=== PATIENT | female | born 1980 | race Caucasian/White ===

== ENCOUNTER 2016-10-26 15:24 | Emergency (ER) | payer OTHER ==
[2016-10-26 15:36] VITALS: BP 101/60
--- NOTE | 2016-10-26 15:58 | UC ---
Throat Pain/Nasal Hardeep HPI - HPI Summary HPI Summary: Started having fever 7 days ago with body aches, cough, nasal congestion, and CASIANO. Fevers resolved after 3-4 days, nasal congestion is improved, and cough is only occasional. Starting yesterday developed new fever with body aches, severe ST, and difficulty swallowing. Has school-aged kids at home. - History of Current Complaint Chief Complaint: UCRespiratory Stated Complaint: SORE THROAT CASIANO ACHES Time Seen by Provider: 10/26/16 15:36 Hx Obtained From: Patient Hx Last Menstrual Period: STARTED 32-4 DAYS AGO ?: No Onset/Duration: Gradual Onset Severity: Moderate Cough: Nonproductive Associated Signs & Symptoms: Positive: Nasal Discharge, Fever - Allergies/Home Medications Allergies/Adverse Reactions: Allergies Allergy/AdvReac Type Severity Reaction Status Date / Time No Known Allergies Allergy Verified 12/06/15 20:39 PMH/Surg Hx/FS Hx/Imm Hx Endocrine History Of: Denies: Diabetes, Thyroid Disease Cardiovascular History Of: Denies: Cardiac Disorders, Hypertension, Pacemaker/ICD, Congestive Heart Failure Respiratory History Of: Denies: COPD, Asthma GI/ History Of: Denies: Ulcer, Renal Disease - Surgical History Surgical History: Yes Surgery Procedure, Year, and Place: x2, l ureter transplant - Family History Known Family History: Positive: Hypertension - Social History Lives: With Family Alcohol Use: Rare Substance Use Type: None Smoking Status (MU): Never Smoked Tobacco Review of Systems Constitutional: Fever, Chills, Fatigue Skin: Negative Eyes: Negative ENT: Sore Throat, Nasal Discharge Respiratory: Cough Cardiovascular: Negative Gastrointestinal: Negative Genitourinary: Negative Motor: Negative Neurovascular: Negative Musculoskeletal: Negative Neurological: Negative Psychological: Negative All Other Systems Reviewed And Are Negative: Yes Physical Exam Triage Information Reviewed: Yes Appearance: Well-Nourished, Ill-Appearing - feverish Vital Signs: Initial Vital Signs Temp 100.7 F 10/26/16 15:30 Pulse 76 10/26/16 15:30 Resp 20 10/26/16 15:30 BP 101/60 10/26/16 15:30 Pulse Ox 99 10/26/16 15:30 Vital Signs Reviewed: Yes Eye Exam: Normal Eyes: Positive: Conjunctiva Clear ENT: Positive: Normal ENT inspection, Hearing grossly normal, Pharynx normal, Nasal congestion - mild, TMs normal Dental Exam: Normal Neck: Positive: Supple, Enlarged Nodes @ - tonsillar Respiratory Exam: Normal Respiratory: Positive: Chest non-tender, Lungs clear, Normal breath sounds, No respiratory distress, No accessory muscle use Cardiovascular Exam: Normal Cardiovascular: Positive: RRR, No Murmur Musculoskeletal Exam: Normal Neurological Exam: Normal Psychological Exam: Normal Skin Exam: Normal Throat Pain/Nasal Course/Dx - Differential Dx/Diagnosis Provider Diagnoses: strep pharyngitis. influenza-like illness, resolving Discharge - Discharge Plan Condition: Stable Disposition: HOME Prescriptions: Amoxicillin (*) 875 mg PO BID #20 tab Patient Education Materials: Strep Throat (ED) Forms: *Work Release Referrals: Vincenzo Cardenas MD [Primary Care Provider] - If Needed Additional Instructions: Rapid strep positive, rapid flu test negative. I suspect you had the flu last week and have cleared the infection.
== END 2016-10-26 16:24 | disposition home or self-care (01) ==
LOC: UCEAST 15:24
DX: J11.1 Influenza due to unidentified influenza virus with other respiratory manifestations (principal)
CPT/HCPCS: 87502; 87651; 99212; G0463

== ENCOUNTER 2019-05-31 17:09 | Emergency (ER) | payer OTHER ==
[2019-05-31 17:22] VITALS: BP 116/72
--- NOTE | 2019-05-31 18:03 | UC ---
Back Pain HPI - HPI Summary HPI Summary: The patient is a 38-year-old female who for the last 6 weeks has been waking up at night with right subscapular back pain. The pain tends to radiate towards her anterior chest. The pain is so bad that she cannot lay on that side. She states that during the day she is pain-free. She denies any injury. She has had no fever or chills or weight loss. She denies any history of cancer. - History of Current Complaint Chief Complaint: UCBackPain Stated Complaint: RIB PAIN Time Seen by Provider: 05/31/19 17:40 Hx Obtained From: Patient Hx Last Menstrual Period: today Onset/Duration: Gradual Onset, Lasting Weeks Timing: Intermittent, Lasting Hours Severity Initially: Moderate Severity Currently: Mild Pain Intensity: 4 Pain Scale Used: 0-10 Numeric Back Pain: Is Discrete @ Character: Unable to Describe Aggravating Factor(s): Movement, Other - laying on that side Alleviating Factor(s): Other - spontaneously resolves Associated Signs And Symptoms: Positive: Negative - Allergies/Home Medications Allergies/Adverse Reactions: Allergies Allergy/AdvReac Type Severity Reaction Status Date / Time No Known Allergies Allergy Verified 05/31/19 17:17 Home Medications: Home Medications NK [No Home Medications Reported] 05/31/19 [History Confirmed 05/31/19] PMH/Surg Hx/FS Hx/Imm Hx Previously Healthy: Yes - Surgical History Surgical History: Yes Surgery Procedure, Year, and Place: x2, l ureter transplant - Family History Known Family History: Positive: Cardiac Disease, Hypertension, Diabetes, Other - LUPUS/RA/ALS - Social History Alcohol Use: None Substance Use Type: None Smoking Status (MU): Never Smoked Tobacco Review of Systems All Other Systems Reviewed And Are Negative: Yes Constitutional: Positive: Negative Skin: Positive: Negative Eyes: Positive: Negative ENT: Positive: Negative Respiratory: Positive: Negative Cardiovascular: Positive: Negative Gastrointestinal: Positive: Negative Genitourinary: Positive: Negative Motor: Positive: Negative Neurovascular: Positive: Negative Musculoskeletal: Positive: Myalgia - right subscapular Neurological: Positive: Negative Psychological: Positive: Negative Physical Exam Triage Information Reviewed: Yes Appearance: Well-Appearing, No Pain Distress, Well-Nourished Vital Signs: Initial Vital Signs Temp 98.4 F 05/31/19 17:17 Pulse 68 05/31/19 17:17 Resp 18 05/31/19 17:17 BP 116/72 05/31/19 17:17 Pulse Ox 100 05/31/19 17:17 Vital Signs Reviewed: Yes Eyes: Positive: Conjunctiva Clear ENT: Positive: Hearing grossly normal. Negative: Nasal congestion, Nasal drainage, Trismus, Muffled voice, Hoarse voice Neck: Positive: Supple, Nontender Respiratory: Positive: Lungs clear, Normal breath sounds, No respiratory distress, No accessory muscle use. Negative: Chest non-tender Cardiovascular: Positive: RRR, No Murmur Abdomen Description: Positive: Nontender, No Organomegaly, Soft. Negative: CVA Tenderness (R), CVA Tenderness (L) Bowel Sounds: Positive: Present Musculoskeletal: Positive: ROM Intact, No Edema Neurological: Positive: Alert Psychological Exam: Normal Skin Exam: Normal Images Front/Back of Body, Lg ([place]): 1 - pain and tenderness here Diagnostics - Radiology No standard instances Radiology Interpretation Completed By: Radiologist Summary of Radiographic Findings: CXR- NAD Back Pain Course/Dx - Differential Dx/Diagnosis Provider Diagnosis: Right-sided thoracic back pain Discharge ED - Sign-Out/Discharge Documenting (check all that apply): Patient Departure All imaging exams completed and their final reports reviewed: Yes - Discharge Plan Condition: Stable Disposition: HOME Patient Education Materials: Back Pain (ED) Additional Instructions: I am unsure of the cause of your back pain blood work is pending I suggest you get recheck for new or worsening symptoms Please call you provider and set up an appt as soon as possible aleve 1-2 twice daily with food as needed for pain - Billing Disposition and Condition Condition: STABLE Disposition: Home
[2019-06-01 11:51] LABS: ABS Basophils 0.1 10^3/ul (0-0.2); ABS Eosinophils 0.1 10^3/ul (0-0.6); ABS Lymphocytes 2.1 10^3/ul (1.0-4.8); ABS Monocytes 0.5 10^3/ul (0-0.8); ABS Neutrophils 3.6 10^3/ul (1.5-7.7); Hematocrit 39 % (35-47); Lymphocyte % 33.6 %; Mean Corpuscular HGB Conc 34 g/dL (31-36); Mean Corpuscular Hemoglobin 32 pg (27-31); Mean Corpuscular Volume 93 fL (80-97); Mean Platelet Volume 8.3 fL (7.4-10.4); Nucleated Red Blood Cells % 0.2; Platelet Count 289 10^3/uL (150-450); Red Blood Count 4.12 10^6 /uL (3.70-4.87); Red Cell Distribution Width 13 % (10-15); White Blood Count 6.4 10^3/uL (3.5-10.8)
[2019-06-01 11:58] LABS: Albumin 4.7 g/dL (3.2-5.2); Calcium 9.8 mg/dL (8.6-10.3); Potassium 3.9 mmol/L (3.5-5.0); Total Bilirubin 0.3 mg/dL (0.2-1.0)
[2019-06-01 12:04] LABS: BUN/Creatinine Ratio 15.9 (8-20); EGFR African American 86.1 (>60); EGFR Non-African American 71.2 (>60); Globulin 2.4 g/dL (2-4); Total Protein 7.1 g/dL (6.4-8.9)
[2019-06-01 13:27] LABS: Erythrocyte Sed Rate 22 mm/Hr (0-19)
--- NOTE | 2019-06-01 19:43 | UC ---
- Progress Note Progress Note: CBC AND CMP GROSSLY UNREMARKABLE. ESR BORDERLINE HIGH AT 22. THIS IS NONSPECIFIC. NO CHANGE IN MANAGEMENT. FOLLOW-UP PCP ADVISED. Course/Dx - Diagnoses Provider Diagnoses: Right-sided thoracic back pain Discharge ED - Sign-Out/Discharge Documenting (check all that apply): Post-Discharge Follow Up All imaging exams completed and their final reports reviewed: Yes - Discharge Plan Condition: Stable Disposition: HOME Patient Education Materials: Back Pain (ED) Referrals: Janel Mariscal PA [Primary Care Provider] - Additional Instructions: I am unsure of the cause of your back pain blood work is pending I suggest you get recheck for new or worsening symptoms Please call you provider and set up an appt as soon as possible aleve 1-2 twice daily with food as needed for pain - Billing Disposition and Condition Condition: STABLE Disposition: Home
== END 2019-05-31 18:42 | disposition home or self-care (01) ==
LOC: UCEAST 17:09
DX: M54.6 Pain in thoracic spine (principal); R07.81 Pleurodynia
CPT/HCPCS: 36415; 71046; 80053; 85025; 85652; 86038; 99211; G0463